=== PATIENT | female | born 1940 | race Caucasian/White ===

== ENCOUNTER → 2017-11-05 | Emergency (ER) | payer OTHER ==
[~2017-11-05] VITALS: Ht 157.5 cm; Wt 55.3 kg
[~2017-11-05] MED LIST: CLONAZEPAM0.5 MG; HYDROXYCHLOROQ200 MG; MILLIPRED DP5 M1; NABUMETONE750 MG; NORFLEX100MG; OMEPRAZOLE20 M1; TRAMADOL HCL50 MG
== END | disposition home or self-care (01) ==
LOC: ER 20:35
DX: G56.01 Carpal tunnel syndrome, right upper limb (principal)

== ENCOUNTER → 2017-12-13 | Emergency (ER) | payer OTHER ==
[~2017-12-13] VITALS: Ht 157.5 cm; Wt 54.4 kg
== END | disposition home or self-care (01) ==
LOC: ER 16:39
DX: S20.212A Contusion of left front wall of thorax, initial encounter (principal); S20.211A Contusion of right front wall of thorax, initial encounter; S30.0XXA Contusion of lower back and pelvis, initial encounter; V49.9XXA Car occupant (driver) (passenger) injured in unspecified traffic accident, initial encounter; Y93.89 Activity, other specified; Y92.488 Other paved roadways as the place of occurrence of the external cause; Y99.8 Other external cause status

== ENCOUNTER 2018-05-28 18:24 | Emergency (ER) | payer OTHER ==
[~2018-05-28] VITALS: Ht 154.9 cm; Wt 63.5 kg
[2018-05-28] MEDS ORDERED: METHOTREXATE2.5 MG (18:36)
[2018-05-28] MEDS ORDERED: FOLIC ACID1 MG (18:37)
== END 2018-05-29 01:51 | disposition home or self-care (01) ==
LOC: ER 18:24
DX: M13.822 Other specified arthritis, left elbow (principal); M13.842 Other specified arthritis, left hand; M13.832 Other specified arthritis, left wrist

== ENCOUNTER → 2019-03-14 | Outpatient (CLI) | payer OTHER ==
[~2019-03-14] MED LIST changes: +FOLIC ACID1 MG; +METHOTREXATE2.5 MG
== END | disposition home or self-care (01) ==
LOC: NUCLEAR 07:00
DX: R07.89 Other chest pain (principal); I20.9 Angina pectoris, unspecified
CPT/HCPCS: 78452; 93017; A9500; J0153

== ENCOUNTER 2023-08-28 08:39 | Outpatient (CLI) | payer OTHER | END 2023-08-28 08:42 | disposition home or self-care (01) | LOC: NUCLEAR 08:39 | PROVIDERS: ATTEND Internal Medicine Cardiovascular Disease | DX: G45.9 Transient cerebral ischemic attack, unspecified (principal) ==

== ENCOUNTER 2023-11-23 14:47 | Emergency (ER) | payer OTHER ==
[~2023-11-23] VITALS: Ht 157.5 cm; Wt 59.0 kg
[2023-11-23] MEDS ORDERED: NAMENDA1 EACH PO (15:08)
[2023-11-23] MEDS ORDERED: ZOCOR40 MG PO (15:09)
[2023-11-23] MEDS ORDERED: ORENCIA50 MG/0.4 SQ (15:09)
[2023-11-23 17:46] LABS: HEMATOCRIT 37.8 % (36.0-45.00); HEMOGLOBIN 12.9 g/dL (12.0-15.00); MEAN CELL VOLUME 96.1 fL (80.00-100.00); MEAN CORPUSCULAR HEMOGLOBIN 32.8 pg (27.00-32.0); MEAN CORPUSCULAR HGB CONC 34.1 g/dl (32.0-36.0); PLATELET COUNT 200 K/uL (150-450); RED BLOOD COUNT 3.93 M/uL (4.00-6.00); RED CELL DISTRIBUTION WIDTH 13.8 % (11.5-14.5)
[2023-11-23 18:06] LABS: ALBUMIN 3.6 gm/dL (3.4-5.0); BILIRUBIN TOTAL 0.56 mg/dL (0.3-1.2); CALCIUM 8.9 mg/dL (8.5-10.1); CREATININE SERUM 0.6 mg/dL (0.55-1.02); GFR 95.71; GLOBULINA 3.7 G/DL (2.4-3.5); POTASSIUM 3.26 mEq/L (3.5-5.1); TOTAL PROTEIN 7.3 gm/dL (6.4-8.2)
[2023-11-23 18:08] LABS: ABG PH 7.473 (7.35-7.45); BASE EXCESS -0.4 mmol/l; BICARBONATE 22.2 mmol/l (23-25); Tco2 23.1 mmol/l
[2023-11-23 18:09] LABS: allen test SATISFACTORY; o2 21 %; puncture site RADIAL LEFT
[2023-11-23] MEDS ORDERED: LEVOFLOXACIN750 MG PO (20:59)
[2023-11-23] MEDS ORDERED: TUSNEL LIQUID178 ML PO (20:59)
[2023-11-23] MEDS ORDERED: XOPENEX CO1.25 MG/0. IH (20:59)
== END 2023-11-23 22:18 | disposition home or self-care (01) ==
LOC: ER 14:47
PROVIDERS: General Practice
DX: J06.9 Acute upper respiratory infection, unspecified (principal); M06.8A Other specified rheumatoid arthritis, other specified site; Z20.822 Contact with and (suspected) exposure to COVID-19; J43.2 Centrilobular emphysema
CPT/HCPCS: 36415; 71250; 82803; 93005; 94640; 96365; 96366; 99284; J0456; J2930; J7030